=== PATIENT | male | born 1945 | race Caucasian/White ===

== ENCOUNTER 2016-11-03 06:06 | Inpatient (IN) ==
--- NOTE | 2016-10-25 15:24 | EKG Report ---
Stationary ECG Study [facility] Test Date: 10/25/2016 3:25:07 PM Pat Name: LILIANA ANDREA Department: Room: Gender: M Head Of Visual Merchandising: MIGUEL : 1945 Requested by: Mitul Capellan Order Number: [id number] Reading MD: SHIVANI ABURTO Intervals [place] Rate: 55 P: 45 PA: 219 QRS: -37 QRSD: 124 T: 165 QT: 533 QTc: 521 Interpretive Statements SINUS RHYTHM WITH PROLONGED PA INTERVAL MARKED LEFT AXIS DEVIATION LEFT VENTRICULAR HYPERTROPHY AND ST-T CHANGE Electronically Signed On 10-25-16 16:27:21 CDT by SHIVANI ABURTO [email or web address]
[~2016-11-03 06:06] MED LIST: SODIUM CHLORIDE 0.9% 100 ML IV ONE; ceFAZolin 1,000 MG VIAL ONE
[2016-11-03] MEDS ORDERED: LIDOCAINE 2% TOP JELLY 20 ML VIAL INTRAURETH ONE (06:25)
[2016-11-03] MEDS ORDERED: HEPARIN 5,000 UNIT/1 ML VIAL ONE (06:25)
[2016-11-03] MEDS ORDERED: THROMBIN TOPICAL (RECOMBINANT) 5,000 UNIT VIAL TOP ONE (06:26)
[2016-11-03] MEDS ORDERED: TISSUE ADHESIVE 1 EACH APPLICATOR TOP ONE (06:26)
[2016-11-03] MEDS ORDERED: VANCOMYCIN 500 MG VIAL ONE (06:26)
[2016-11-03] MEDS ORDERED: FAMOTIDINE 20 MG TABLET PO ONE (06:33)
[2016-11-03] MEDS ORDERED: ALBUTEROL 2.5 MG/3 ML NEB RESP TX ONE (06:33)
[2016-11-03] MEDS ORDERED: IPRATROPIUM 500 MCG/2.5 ML NEB RESP TX ONE (06:33)
[2016-11-03] MEDS ORDERED: LORazepam 1 MG TABLET PO ONE (06:33)
[2016-11-03] MEDS ORDERED: FAMOTIDINE 20 MG TABLET ONE (06:43)
[2016-11-03] MEDS ORDERED: LORazepam 1 MG TABLET ONE (06:43)
[2016-11-03] MEDS ORDERED: HEPARIN/NACL 0.9% 2 UNITS/ML 3,000 ML IV ONE (07:19)
[2016-11-03] MEDS ORDERED: HEPARIN 10,000 UNIT/10 ML VIAL ONE ×2 (07:30→11:30)
[2016-11-03] MEDS ORDERED: PROPOFOL 200 MG/20 ML VIAL IV ONE (07:30)
[2016-11-03] MEDS ORDERED: PHENYLEPHRINE 50 MG/5 ML VIAL ONE ×2 (07:30→11:31)
[2016-11-03] MEDS ORDERED: ROCURONIUM 100 MG/10 ML VIAL IV ONE ×2 (07:30→11:32)
[2016-11-03] MEDS ORDERED: ETOMIDATE 20 MG/10 ML VIAL IV ONE ×2 (07:30→11:31)
[2016-11-03] MEDS ORDERED: LIDOCAINE 2% 5 ML VIAL ONE (07:30)
[2016-11-03] MEDS ORDERED: ONDANSETRON 4 MG/2 ML VIAL IV PRN (10:37)
[2016-11-03] MEDS ORDERED: HYDROmorphone 2 MG/1 ML VIAL IV PRN (10:37)
[2016-11-03] MEDS ORDERED: oxyCODONE/ACETAMINOPHEN 5-325 MG TABLET PO PRN (10:37)
--- NOTE | 2016-11-03 10:37 | History and Physical Update ---
History and Physical Update - History and Physical H&P was reviewed, the patient examined and there: are no changes in the patients condition since last H&P was completed. - Physical Exam Mental Status: alert and oriented Heart: regular rate and rhythm Lung: clear to auscultation Abdomen: within normal limits Vitals: within normal limits
--- NOTE | 2016-11-03 10:49 | Post Interventional Procedure ---
Pre-op diagnosis: AAA, bilateral common iliac aneurysms Post-op diagnosis: same Procedure: EVAR AAA, left EDUARDO aneurysm Contrast: Omnipaque 350, 125 cc Flouroscopy: 26.1 min Radiologist: Anjel Anne Anesthesia: GETA Specimens: none sent Estimated blood loss: minimal (50 cc) Complications: none Condition: stable Grafts or Implants: See radiology dictation for device specifications Assessment and Plan - Time spent with patient Time spent with patient: Greater than 30 minutes (1) Abdominal aortic aneurysm Status: Acute Assessment and plan: A: s/p EVAR AAA, CIAA P: Tx to floor, advance diet, D/c palacios when ambulatory Current Visit: Yes
--- NOTE | 2016-11-03 11:21 | Anesthesia Post-Op ---
Anesthesia Post OP - Post Ansesthetic Evaluation Patient seen in post op: Yes Resp: within normal limits CV: within normal limits Mental: within normal limits Temp: within normal limits Pmmj-Pr-Keeranewi: within normal limits Nausea and Vomiting: within normal limits Pain: within normal limits
[2016-11-03] MEDS ORDERED: SEVOFLURANE 1 UNIT/15 MINUTE INH ONE (11:31)
[2016-11-03] MEDS ORDERED: GLYCOPYRROLATE 0.4 MG/2 ML VIAL ONE (11:31)
[2016-11-03] MEDS ORDERED: ePHEDrine 50 MG/ML AMP ONE (11:32)
[2016-11-03] MEDS ORDERED: LACTATED RINGERS 1,000 ML IV ONE (11:32)
[2016-11-03] MEDS ORDERED: SODIUM CHLORIDE 0.9% 250 ML IV ONE (11:32)
[2016-11-03] MEDS ORDERED: PROTAMINE SULFATE 50 MG/5 ML VIAL IV ONE (11:32)
[2016-11-03] MEDS ORDERED: SODIUM CHLORIDE 0.9% 2,000 ML IV ONE (11:32)
[2016-11-03 11:53] LABS: Hematocrit 39.1 VOL% (42.0-52.0); Hemoglobin 13.6 GM/DL (14.0-18.0)
[2016-11-03 12:11] LABS: Calcium 7.4 MG/DL (8.5-10.1); Osmolality,Calculated 292.6 MOS/KG (273-304); Potassium 3.6 MMOL/L (3.5-5.1)
--- NOTE | 2016-11-03 13:50 | Interventional Radiology Rpt ---
IR endo repair [id number], IR endo repair iliac ilio tube, IR stent graft place iliac, IR stent graft place iliac, US guide vascular access, US guide vascular access Indication: Abdominal aortic aneurysm. Bilateral common iliac artery aneurysms, worse on the left. ENDOVASCULAR REPAIR OF ABDOMINAL AORTIC ANEURYSM, REPAIR OF LEFT COMMON ILIAC ARTERY ANEURYSM Description: A formal timeout was performed. General endotracheal anesthesia was induced. Maximum sterile barrier technique was instituted. Heparin 5000 units was given. The right groin was evaluated with ultrasound and the common femoral artery shown to be slightly calcified but otherwise patent and compressible. Under sonographic guidance, a micropuncture needle was advanced into the right common femoral artery. A captured sonographic image documents the needle position. Needle was removed over wire. A Perclose device was then advanced and partially deployed at the 4:00 position relative to the arteriotomy site. This Perclose device was exchanged over wire for a second Perclose device which was partially deployed at the 8:00 position relative to the arteriotomy site. Both sutures were secured. The second Perclose was then removed over wire and a 12 [place] sheath positioned. The left groin was evaluated with ultrasound and the left common femoral artery shown to be slightly calcified but otherwise patent and compressible. Under sonographic guidance, a micropuncture needle was advanced into the left common femoral artery. A captured sonographic image documents needle position. Needle was removed over wire. A Perclose device was then advanced and partially deployed at the 8:00 position relative to the arteriotomy site. This Perclose device was exchanged over wire for another Perclose device which was partially deployed at the 4:00 position relative to the arteriotomy site. Both sutures were secured. The second Perclose was then removed over wire and a 16 [place] sheath positioned. A Glidewire was advanced from the left groin, and snared from the right groin. The Glidewire was then pulled through the right groin access sheath providing continuous up and over access across the bifurcation. From the left groin, a [place] Excluder 23 x 12 x 100 mm bifurcated iliac branch component was advanced. A pelvic angiogram was then performed through the right groin sheath confirming the position of the left hypogastric origin. After adjusting the bifurcated iliac component, it was partially deployed. From the right groin, the 12 [place] sheath was further advanced into the lumen of the newly deployed stent graft device. Lana catheter and Glidewire were then used to cannulate the left hypogastric artery. Position was confirmed with a arteriogram delineating the anterior and posterior divisions. A [place] Excluder 16 x 10 x 70 mm hypogastric operations boardman was then advanced and deployed linking the bifurcated iliac component to the left hypogastric artery. The remainder of the left external iliac outflow component was deployed in its entirety. Angioplasty was performed from both sides securing the left iliac structure in place. ACT of 187 seconds was measured. Heparin 5000 units was given. The 12 [place]ien right groin sheath was then withdrawn, and Cedillo wires advanced from both groins. The right sheath was then exchanged for a 18 [place] sheath. From the right groin, a [place] excluder 28.5 x 14.5 x 120 mm bifurcated aortic stent graft component was advanced into the suprarenal abdominal aorta. From the left groin, a flush catheter was advanced into the aorta. Abdominal aortogram was performed confirming the position of the lowest left renal artery. After adjusting the main body device slightly, the main body was deployed followed by deployment of the contralateral limb. The flush catheter was then withdrawn over a wire and exchanged for a Tegtmeyer catheter. The contralateral iliac limb was easily cannulated and a Tegtmeyer catheter advanced in the main body of the device. The Tegtmeyer catheter was exchanged for a flush catheter from the left groin which was then spun within the lumen of the stent graft confirm intraluminal positioning. Measurements from the main body flow divider to the left bifurcated iliac construct were then obtained and a [place] Excluder 16 x 23 x 120 mm contralateral iliac stent graft was advanced and deployed bridging the main body to the left iliac construct. Through the right groin sheath, a right groin arteriogram was performed confirming the origin of the right hypogastric artery. The flow divider of the main body position was confirmed and a [place] Excluder 16 x 27 x 140 mm carrero bottom iliac operations boardman was advanced from the right groin and deployed, distal portion of the stent graft in the slightly dilated right common iliac artery. Angioplasty was then performed throughout the entire construct from the inflow segment through both iliac portions. The right groin, a flush catheter was positioned in the suprarenal abdominal aorta. Aortogram was performed showing no evidence of endoleak and patency of all iliac outflow components. ACT of 223 seconds was measured. Protamine 25 mg was administered. At the right groin, the Perclose knots were advanced to the level of the sheath. The sheath was then removed and both Perclose not disclosed on the arteriotomy site. Sutures were cut and hemostasis was rapidly achieved with mild manual compression. Similarly, at the left groin, both Perclose knots were secured to the level of the sheath. After removing the sheath, they were then secured to the arteriotomy site achieving satisfactory hemostasis with light manual compression. Sterile dressings were applied. Patient was then awakened and transferred to recovery in stable condition. He tolerated the procedure well. Contrast: Omnipaque 350, 125 cc. Fluoroscopy: 26.1 minutes, 167 captured images. Medications: General endotracheal anesthesia. Heparin 10,000 units, protamine 25 mg. Impression: 1. Successful percutaneous endovascular repair of the left common iliac artery aneurysm maintaining outflow to both the left external and internal iliac arteries. 2. Successful percutaneous endovascular repair of abdominal aortic aneurysm linking the left iliac outflow to the bifurcated iliac construct described above. Right iliac outflow is to the right common iliac artery via carrero bottom stent graft. PROCEDURE INTERPRETED AT [facility] DEPARTMENT OF RADIOLOGY Final Report Signed by: Anjel Anne M.D.
[2016-11-03] MEDS: LACTATED RINGERS 1,000 ML IV SCH ×2 (14:45→15:15)
[2016-11-03] MEDS ORDERED: DILTIAZEM CD 240 MG CAPSULE PO SCH ×2 (15:00→21:00)
[2016-11-03] MEDS: LOSARTAN 50 MG TABLET PO SCH (15:48)
[2016-11-03] MEDS: MONTELUKAST 10 MG TABLET PO SCH (15:48)
[2016-11-03] MEDS: LEVOTHYROXINE 150 MCG TABLET PO SCH (15:49)
[2016-11-03] MEDS: DOCUSATE SODIUM 100 MG CAPSULE PO SCH (20:45)
[2016-11-03] MEDS ORDERED: BUDESONIDE/FORMOTEROL 160-4.5 INHALER 6 GM INH SCH (21:00)
[2016-11-03] MEDS ORDERED: ATORVASTATIN 40 MG TABLET PO SCH (21:00)
[2016-11-04] MEDS: LACTATED RINGERS 1,000 ML IV SCH (02:30)
[2016-11-04 06:30] LABS: Hematocrit 38.6 VOL% (42.0-52.0); Hemoglobin 13.2 GM/DL (14.0-18.0)
[2016-11-04 06:58] LABS: Calcium 7.9 MG/DL (8.5-10.1); Potassium 3.7 MMOL/L (3.5-5.1)
[2016-11-04] MEDS: LEVOTHYROXINE 150 MCG TABLET PO SCH (08:52)
[2016-11-04] MEDS: LOSARTAN 50 MG TABLET PO SCH (08:52)
[2016-11-04] MEDS: MONTELUKAST 10 MG TABLET PO SCH (08:53)
[2016-11-04] MEDS: DOCUSATE SODIUM 100 MG CAPSULE PO SCH (08:53)
[2016-11-04] MEDS ORDERED: CHLORTHALIDONE 25 MG TABLET PO SCH (09:00)
[2016-11-04] MEDS ORDERED: AMIODARONE 200 MG TABLET PO SCH (09:00)
[2016-11-04] MEDS ORDERED: clonazePAM 0.5 MG TABLET PO SCH (09:00)
[2016-11-04] MEDS ORDERED: MULTIVITAMIN (CENTRUM) TABLET PO SCH (09:00)
[2016-11-04] MEDS ORDERED: ASPIRIN EC 81 MG TABLET PO SCH (09:00)
--- NOTE | 2016-11-04 09:21 | XRay Report ---
Exam: KUB Exam date: 11/04/2016 906 AM Indication: Abdominal pain Comparison: No relevant comparison images Findings: There are dispersed throughout nondilated loops of large and small bowel with stool throughout the distal colon . No stones. Placement of bifurcated left iliac and aortoiliac stent graft, uncomplicated in appearance.No acute osseous abnormalities. Visualized lung bases are unremarkable. Impression: 1. Uncomplicated appearance of bifurcated iliac and aortoiliac stent graft 2. Mild ileus pattern PROCEDURE INTERPRETED AT [facility] DEPARTMENT OF RADIOLOGY Final Report Signed by: Jacky Grigsby
[2016-11-04 11:22] VITALS: BP 137/73
--- NOTE | 2016-11-04 11:45 | Progress Note ---
Assessment and Plan (1) Abdominal aortic aneurysm Status: Acute Assessment and plan: A: s/p EVAR AAA, CIAA P: Tx to floor, advance diet, D/c palacios when ambulatory 11:45 @ 11/04/16: Patient doing well postop day 1 from endovascular repair as described. Anticipate discharge today or early tomorrow. Follow-up CT 1 month. Current Visit: Yes Family Medicine PN Sub Interval history: Postop day 1 from complex endovascular repair of abdominal aortic aneurysm and left iliac artery aneurysm. Patient tolerating p.o. intake, and eager to go home. No issues overnight. Exam (Progress Note) - Constitutional Vitals: Period Temp Pulse Resp BP Sys/Kwong Pulse Ox Last 24 Hr 97.0 F-99.9 F 66-86 16-20 123-158/48-83 89-99 General appearance: over weight - Head Head exam: Present: normal inspection - Extremities Exam Extremities exam: Present: other (2+ bilateral posterior tibialis pulses of the feet, both feet warm and dry. Both groin dressings still present. No hematoma or significant ecchymosis on either side.) Results - Labs CBC & BMP: 11/04/16 05:33 11/04/16 05:33 Quality Measures - VTE Contraindication to Pharmacological VTE Prophylaxis: High Risk of Bleeding
--- NOTE | 2016-11-04 11:56 | Discharge Summary ---
Hospital Course - Hospital Course Hospital Course: Jacky moses was admitted 11/03/2016 with abdominal aortic and bilateral iliac aneurysms and underwent complex endovascular repair with a bifurcated graft at the left iliac bifurcation as well as a standard excluder graft in the aortoiliac systems that he is done well with that procedure and it is gone smoothly his blood counts are stable his electrolytes look good he has normal vital signs he is up and about tolerating a diet his incisions look good with no hematomas he has got good palpable posterior tibial pulses he is ready for discharge and I discussed with him and his discharge instructions on diet exercise wound care expected recovery potential complications. He will be discharged home back on his normal medications I will recommend Advil or Tylenol for pain going to add Plavix for approximately 6 months I will see him in the office in approximately 10-12 days I will see him sooner on a as needed basis Discharge Plan - Discharge Data Disposition: Disch To Home/Self Care Condition at Discharge: Stable Discharge Diet: advance to your usual diet Activity: resume usual activities as tolerated Hygiene: may shower Weight Bearing at Discharge: full weight bearing Contact your physician if you experience:: fever over 101, Redness or swelling - Discharge Medications New oxyCODONE/ACETAMINOPHEN 5-325 [Percocet 5-325] 1 tablet PO Q4H PRN tablet PRN Reason: Pain Moderate To Severe (4-10) Chlorthalidone [Hygroton] 25 mg PO DAILY tablet Clopidogrel [Plavix] 75 mg PO DAILY #30 tablet Continue Budesonide/Formoterol 160-4.5 [Symbicort 160-4.5] 1 puff INH BEDTIME Multivitamin (Centrum) [Centrum Tab] 1 tablet PO DAILY Docusate Sodium [Stool Softener] 100 mg PO BID Montelukast Tab [Singulair Tab] 10 mg PO DAILY Losartan Potassium 100 mg PO DAILY clonazePAM [Klonopin] 1 mg PO BEDTIME Atorvastatin [Lipitor] 40 mg PO BEDTIME dilTIAZem HCl [Diltiazem 24Hr Cd] 240 mg PO BEDTIME Aspirin [Ecotrin] 81 mg PO BEDTIME Amiodarone HCl 200 mg PO DAILY Levothyroxine Tab [Synthroid Tab] 150 mcg PO DAILY - Follow Up or Referral Follow Up: Jerzy Lopez MD [Physician] - 11/15/16 - Forms/Instructions Exam - Constitutional Vitals: Period Temp Pulse Resp BP Sys/Kwong Pulse Ox Last 24 Hr 97.0 F-99.9 F 66-86 16-20 123-158/48-83 89-99 Discharge Results Labs on day of discharge: Labs from last 24 hours 11/04/16 11/04/16 11/03/16 05:33 05:33 11:45 Hgb 13.2 L 13.6 L Hct 38.6 L 39.1 L Sodium 143 Potassium 3.7 Chloride 109 H Carbon Dioxide 26 Anion Gap 11.7 BUN 10 Creatinine 1.00 GFR Calculation 100 BUN/Creatinine Ratio 10.00 Glucose 98 Calculated Osmolality 283.0 Calcium 7.9 L 11/03/16 11:45 Hgb Hct Sodium 146 H Potassium 3.6 Chloride 114 H Carbon Dioxide 24 Anion Gap 11.6 BUN 16 Creatinine 1.10 GFR Calculation 90 BUN/Creatinine Ratio 14.00 Glucose 143 H Calculated Osmolality 292.6 Calcium 7.4 L DS: Provider Date of admission: 11/03/16 06:06 Primary care physician: Ezio Monteiro DO Attending physician on admission: Jerzy Lopez MD Consults: 11/03/16 10:37 Consult to Physician [CONS] Routine Comment: Consulting Provider: Anjel Anne Consulting Provider Notified: Yes Date Notified: 11/03/16 Consult Notification Comment: Dr. Anne has seen 11/03/16 14:40 Consult to Pastoral Services [CONS] Routine Comment: Pastoral Screen: Request Log Feeder Visit Pastoral Screen Source of Request: Patient Discharging clinician: Jerzy Lopez MD
== END 2016-11-04 14:30 | disposition home or self-care (01) | DRG 269 ==
LOC: N.SDSINP 06:06 → N.3E 13:46
PROVIDERS: ADMIT Surgery; ATTEND Surgery
PROC: IRERAAA (2016-11-03 07:05)

== ENCOUNTER 2020-05-18 08:44 | Inpatient (IN) ==
[2020-05-18] MEDS ORDERED: DEXTROSE 50% 25 GM/50 ML VIAL IV PRN (09:49)
[2020-05-18] MEDS ORDERED: GLUCAGON 1 MG VIAL IM PRN (09:49)
[2020-05-18] MEDS ORDERED: ENOXAPARIN 40 MG/0.4 ML SYRINGE SUBCUT SCH (10:00)
[2020-05-18 10:38] LABS: Basophils # 0.1 10*3/uL (0.0-0.2); Basophils % 0.6 % (0.0-0.8); Eosinophils # 0.2 10*3/uL (0.0-0.87); Eosinophils % 2.1 % (0.00-10.9); Hematocrit 45.9 VOL% (42.0-52.0); Hemoglobin 15.3 GM/DL (14.0-18.0); Immature Granulocytes Absolute 0.11 #; Lymphocytes # 2.4 10*3/uL (1.4-4.0); Mean Corpuscular HGB Conc 33.3 GM/DL (32-36); Mean Corpuscular Volume 94.6 FL (87-102); Mean Platelet Volume 10.5 FL (9.6-12.0); Neutrophils % 66.3 % (38.7-73.9); Platelet Count 270 T/CUMM (130-400); Red Blood Count 4.85 MC/CUMM (3.8-5.5); Red Cell Distribution Width 14.4 % (9.3-17.3); White Blood Count 11.4 T/CUMM (4-12)
[2020-05-18 11:00] LABS: Albumin 3.7 G/DL (3.4-5.0); Calcium 8.9 MG/DL (8.5-10.1); Potassium 3.3 MMOL/L (3.5-5.1); Total Protein 6.9 G/DL (6.4-8.2)
[2020-05-18] MEDS ORDERED: LORazepam 2 MG/1 ML VIAL IV PRN (12:25)
[2020-05-18] MEDS: POTASSIUM CHLORIDE INJ 20 MEQ in LACTATED RINGERS 1,000 ML IV SCH ×2 (15:04→23:16)
[2020-05-18] MEDS: clonazePAM 0.5 MG TABLET PO SCH (20:57)
[2020-05-18] MEDS: ASPIRIN EC 81 MG TABLET PO SCH (20:57)
[2020-05-19] MEDS: LEVOTHYROXINE 150 MCG TABLET PO SCH (05:49)
[2020-05-19 06:13] LABS: Basophils # 0.1 10*3/uL (0.0-0.2); Basophils % 0.6 % (0.0-0.8); Eosinophils # 0.3 10*3/uL (0.0-0.87); Eosinophils % 2.7 % (0.00-10.9); Hematocrit 42.5 VOL% (42.0-52.0); Hemoglobin 14.1 GM/DL (14.0-18.0); Immature Granulocytes Absolute 0.09 #; Lymphocytes # 2.1 10*3/uL (1.4-4.0); Lymphocytes % 22.3 % (21.2-54.2); Mean Corpuscular HGB Conc 33.2 GM/DL (32-36); Mean Corpuscular Volume 95.9 FL (87-102); Mean Platelet Volume 10.4 FL (9.6-12.0); Monocytes % 9.4 % (1.7-12.7); Platelet Count 270 T/CUMM (130-400); Red Blood Count 4.43 MC/CUMM (3.8-5.5); Red Cell Distribution Width 14.4 % (9.3-17.3); White Blood Count 9.2 T/CUMM (4-12)
[2020-05-19 06:24] LABS: INR 1.1; PT Patient Result 11.6 SECS (9.8-11.9)
[2020-05-19 06:39] LABS: Calcium 8.7 MG/DL (8.5-10.1); Osmolality,Calculated 278.5 MOS/KG (273-304); Potassium 3.7 MMOL/L (3.5-5.1); Thyroid Stimulating Hormone 3.45 uIU/ml (0.358-3.74)
[2020-05-19 07:01] LABS: Calcium 8.5 MG/DL (8.5-10.1); Osmolality,Calculated 282.3 MOS/KG (273-304); Potassium 3.8 MMOL/L (3.5-5.1)
[2020-05-19] MEDS: LACTATED RINGERS 1,000 ML IV SCH (07:01)
[2020-05-19] MEDS ORDERED: LIDOCAINE 2% 5 ML VIAL ONE (07:10)
[2020-05-19] MEDS ORDERED: propofoL 200 MG/20 ML VIAL IV ONE ×2 (07:10→07:54)
[2020-05-19] MEDS ORDERED: ePHEDrine 50 MG/ML VIAL ONE (07:22)
[2020-05-19] MEDS ORDERED: PHENYLEPHRINE 1 MG/10 ML SYRINGE IV ONE (07:50)
[2020-05-19] MEDS: POTASSIUM CHLORIDE INJ 20 MEQ in LACTATED RINGERS 1,000 ML IV SCH ×2 (09:05→15:57)
[2020-05-19] MEDS: CHLORTHALIDONE 25 MG TABLET PO SCH (09:05)
[2020-05-19] MEDS: DILTIAZEM CD 120 MG CAPSULE PO SCH (09:06)
[2020-05-19] MEDS: LOSARTAN 50 MG TABLET PO SCH (09:06)
[2020-05-19] MEDS: AMIODARONE 200 MG TABLET PO SCH (09:06)
[2020-05-19] MEDS: BISACODYL 5 MG TABLET PO SCH ×2 (09:13→15:56)
[2020-05-19] MEDS ORDERED: ACETAMINOPHEN 325 MG TABLET PO PRN (17:51)
[2020-05-19] MEDS ORDERED: POLYETHYLENE GLYCOL 3350/ELECTROLYTES 4,000 ML BOTTLE PO ONE (18:00)
[2020-05-19] MEDS: clonazePAM 0.5 MG TABLET PO SCH (20:58)
[2020-05-19] MEDS: ASPIRIN EC 81 MG TABLET PO SCH (20:58)
[2020-05-19] MEDS ORDERED: MAGNESIUM CITRATE 300 ML BOTTLE PO ONE (21:00)
[2020-05-20] MEDS: POTASSIUM CHLORIDE INJ 20 MEQ in LACTATED RINGERS 1,000 ML IV SCH ×3 (00:08→15:46)
[2020-05-20] MEDS: BISACODYL 5 MG TABLET PO SCH (00:09)
[2020-05-20] MEDS: LEVOTHYROXINE 150 MCG TABLET PO SCH (05:39)
[2020-05-20 06:00] LABS: Basophils # 0.1 10*3/uL (0.0-0.2); Basophils % 0.7 % (0.0-0.8); Eosinophils # 0.3 10*3/uL (0.0-0.87); Eosinophils % 4.3 % (0.00-10.9); Hematocrit 38.7 VOL% (42.0-52.0); Hemoglobin 13.3 GM/DL (14.0-18.0); Immature Granulocytes % 1.3 %; Immature Granulocytes Absolute 0.09 #; Lymphocytes # 2.1 10*3/uL (1.4-4.0); Lymphocytes % 30.6 % (21.2-54.2); Mean Corpuscular HGB Conc 34.4 GM/DL (32-36); Mean Corpuscular Volume 92.1 FL (87-102); Mean Platelet Volume 10.6 FL (9.6-12.0); Monocytes % 10.1 % (1.7-12.7); Platelet Count 219 T/CUMM (130-400); Red Cell Distribution Width 14.1 % (9.3-17.3); White Blood Count 6.8 T/CUMM (4-12)
[2020-05-20 06:15] LABS: Osmolality,Calculated 286.8 MOS/KG (273-304); Potassium 3.1 MMOL/L (3.5-5.1)
[2020-05-20] MEDS: LACTATED RINGERS 1,000 ML IV SCH (06:40)
[2020-05-20] MEDS ORDERED: propofoL 200 MG/20 ML VIAL IV ONE ×3 (07:23→08:03)
[2020-05-20] MEDS ORDERED: LIDOCAINE 2% 5 ML VIAL ONE (07:23)
[2020-05-20] MEDS ORDERED: PHENYLEPHRINE 1 MG/10 ML SYRINGE IV ONE (07:23)
[2020-05-20] MEDS: AMIODARONE 200 MG TABLET PO SCH (11:02)
[2020-05-20] MEDS: LOSARTAN 50 MG TABLET PO SCH (11:02)
[2020-05-20] MEDS: DILTIAZEM CD 120 MG CAPSULE PO SCH (11:02)
[2020-05-20] MEDS: CHLORTHALIDONE 25 MG TABLET PO SCH (11:02)
[2020-05-20 15:31] VITALS: BP 144/69
[2020-05-20] MEDS ORDERED: POTASSIUM CHLORIDE 20 MEQ TABLET PO ONE (15:40)
== END 2020-05-20 17:50 | disposition home or self-care (01) | DRG 390 ==
LOC: N.EDINP 08:44 → N.ED 08:44 → N.3E 12:58
PROVIDERS: ADMIT Hospitalist; ATTEND Hospitalist

== ENCOUNTER 2021-04-12 05:57 | Inpatient (IN) ==
[2021-04-08 12:14] LABS: Basophils % 0.6 % (0.0-0.8); Eosinophils # 0.3 10*3/uL (0.0-0.87); Eosinophils % 3.9 % (0.00-10.9); Hemoglobin 14.6 GM/DL (14.0-18.0); Immature Granulocytes % 0.6 %; Immature Granulocytes Absolute 0.04 #; Lymphocytes # 1.8 10*3/uL (1.4-4.0); Lymphocytes % 25.1 % (21.2-54.2); Mean Corpuscular HGB Conc 33.2 GM/DL (32-36); Mean Platelet Volume 11.1 FL (9.6-12.0); Monocytes % 9.4 % (1.7-12.7); Neutrophils % 60.4 % (38.7-73.9); Platelet Count 256 T/CUMM (130-400); Red Blood Count 4.73 MC/CUMM (3.8-5.5); Red Cell Distribution Width 13.2 % (9.3-17.3); White Blood Count 7.2 T/CUMM (4-12)
[2021-04-08 12:28] LABS: Calcium 9.4 MG/DL (8.5-10.1); Osmolality,Calculated 286.4 MOS/KG (273-304); Potassium 4.5 MMOL/L (3.5-5.1)
[~2021-04-12 05:57] MED LIST changes: +ERTAPENEM 1,000 MG in SODIUM CHLORIDE 0.9% 100 ML IV ONE; -SODIUM CHLORIDE 0.9% 100 ML IV ONE; -ceFAZolin 1,000 MG VIAL ONE
[2021-04-12] MEDS ORDERED: ALVIMOPAN 12 MG CAPSULE PO ONE (06:00)
[2021-04-12] MEDS: LACTATED RINGERS 1,000 ML IV SCH ×4 (06:30→19:47)
[2021-04-12] MEDS ORDERED: ALBUTEROL/IPRATROPIUM 3 ML NEB RESP TX STA (06:41)
[2021-04-12] MEDS ORDERED: ACETAMINOPHEN 500 MG TABLET PO STA (06:41)
[2021-04-12] MEDS ORDERED: FAMOTIDINE 20 MG TABLET PO STA (06:42)
[2021-04-12] MEDS ORDERED: DEXAMETHASONE 4 MG/1 ML VIAL ONE ×2 (06:44→08:23)
[2021-04-12] MEDS ORDERED: BUPIVACAINE MPF 0.5% 30 ML VIAL ONE (06:44)
[2021-04-12] MEDS ORDERED: SUFentanil 50 MCG/ML AMP ONE (06:53)
[2021-04-12] MEDS ORDERED: ETOMIDATE 40 MG/20 ML VIAL IV ONE (06:53)
[2021-04-12] MEDS ORDERED: propofoL 200 MG/20 ML VIAL IV ONE (06:53)
[2021-04-12] MEDS ORDERED: SEVOFLURANE 1 UNIT/15 MINUTE INH ONE ×2 (06:53→10:12)
[2021-04-12] MEDS ORDERED: KETAMINE 500 MG/10 ML VIAL ONE (06:53)
[2021-04-12] MEDS ORDERED: SUCCINYLCHOLINE 200 MG/10 ML VIAL ONE (06:53)
[2021-04-12] MEDS ORDERED: LIDOCAINE 2% 5 ML VIAL ONE (06:53)
[2021-04-12] MEDS ORDERED: BUPIVACAINE MPF 0.25% 30 ML VIAL ONE (07:05)
[2021-04-12] MEDS ORDERED: TISSUE ADHESIVE 1 EACH APPLICATOR TOP ONE (07:05)
[2021-04-12] MEDS ORDERED: LIDOCAINE 1%/EPI INJ 20 ML VIAL ONE (07:05)
[2021-04-12] MEDS ORDERED: GLYCOPYRROLATE 0.4 MG/2 ML VIAL ONE (08:21)
[2021-04-12] MEDS ORDERED: ePHEDrine 50 MG/ML VIAL ONE (08:22)
[2021-04-12] MEDS ORDERED: ONDANSETRON 4 MG/2 ML VIAL ONE (08:23)
[2021-04-12] MEDS ORDERED: PHENYLEPHRINE 1 MG/10 ML SYRINGE IV ONE (08:42)
[2021-04-12] MEDS ORDERED: LACTATED RINGERS 1,000 ML IV ONE (08:43)
[2021-04-12] MEDS ORDERED: INDOCYANINE GREEN 25 MG VIAL IV ONE (09:19)
[2021-04-12] MEDS ORDERED: ROCURONIUM 50 MG/5 ML VIAL IV ONE (09:34)
[2021-04-12] MEDS ORDERED: SUGAMMADEX 200 MG/2 ML VIAL IV ONE (09:54)
[2021-04-12] MEDS ORDERED: ACETAMINOPHEN 325 MG TABLET PO PRN (10:25)
[2021-04-12] MEDS ORDERED: ONDANSETRON 4 MG/2 ML VIAL IV PRN ×2 (10:25→10:49)
[2021-04-12] MEDS ORDERED: HYDROmorphone 2 MG/1 ML VIAL IV PRN ×2 (10:25)
[2021-04-12] MEDS ORDERED: ALBUTEROL/IPRATROPIUM 3 ML NEB RESP TX PRN (10:25)
[2021-04-12] MEDS: HYDROmorphone 2 MG/1 ML VIAL IV PRN ×4 (11:00→11:45)
[2021-04-12] MEDS: KETOROLAC 15 MG/1 ML VIAL IV SCH ×2 (13:12→19:34)
[2021-04-12] MEDS: ASPIRIN EC 81 MG TABLET PO SCH (20:49)
[2021-04-12] MEDS: ALVIMOPAN 12 MG CAPSULE PO SCH (20:49)
[2021-04-12] MEDS: traZODone 50 MG TABLET PO SCH (20:49)
[2021-04-12] MEDS: DILTIAZEM CD 120 MG CAPSULE PO SCH (20:49)
[2021-04-12] MEDS: TERAZOSIN 1 MG CAPSULE PO SCH (20:50)
[2021-04-12] MEDS: BUDESONIDE/FORMOTEROL 160-4.5 INHALER 6 GM INH SCH (20:51)
[2021-04-13] MEDS: KETOROLAC 15 MG/1 ML VIAL IV SCH ×4 (01:06→21:23)
[2021-04-13] MEDS: LACTATED RINGERS 1,000 ML IV SCH ×2 (03:20→22:19)
[2021-04-13 05:37] LABS: Basophils % 0.2 % (0.0-0.8); Eosinophils % 0.1 % (0.00-10.9); Hematocrit 36.9 VOL% (42.0-52.0); Hemoglobin 12.4 GM/DL (14.0-18.0); Immature Granulocytes % 0.6 %; Immature Granulocytes Absolute 0.06 #; Lymphocytes # 1.2 10*3/uL (1.4-4.0); Lymphocytes % 12.4 % (21.2-54.2); Mean Corpuscular HGB Conc 33.6 GM/DL (32-36); Mean Corpuscular Volume 93.4 FL (87-102); Mean Platelet Volume 11.3 FL (9.6-12.0); Monocytes % 9.3 % (1.7-12.7); Neutrophils % 77.4 % (38.7-73.9); Platelet Count 197 T/CUMM (130-400); Red Blood Count 3.95 MC/CUMM (3.8-5.5); Red Cell Distribution Width 12.6 % (9.3-17.3); White Blood Count 9.6 T/CUMM (4-12)
[2021-04-13 05:57] LABS: Calcium 7.9 MG/DL (8.5-10.1); Osmolality,Calculated 284.3 MOS/KG (273-304); Potassium 3.3 MMOL/L (3.5-5.1)
[2021-04-13] MEDS: LEVOTHYROXINE 150 MCG TABLET PO SCH (06:33)
[2021-04-13] MEDS: PANTOPRAZOLE 40 MG VIAL IV SCH (08:45)
[2021-04-13] MEDS: AMIODARONE 200 MG TABLET PO SCH (08:46)
[2021-04-13] MEDS: VALSARTAN 160 MG TABLET PO SCH (08:47)
[2021-04-13] MEDS: CHLORTHALIDONE 25 MG TABLET PO SCH (08:48)
[2021-04-13] MEDS: MONTELUKAST 10 MG TABLET PO SCH (08:48)
[2021-04-13] MEDS: ALVIMOPAN 12 MG CAPSULE PO SCH ×2 (08:48→21:22)
[2021-04-13] MEDS: ENOXAPARIN 40 MG/0.4 ML SYRINGE SUBCUT SCH (09:30)
[2021-04-13] MEDS: BUDESONIDE/FORMOTEROL 160-4.5 INHALER 6 GM INH SCH ×2 (09:30→21:24)
[2021-04-13] MEDS: POTASSIUM CHLORIDE INJ 40 MEQ in LACTATED RINGERS 1,000 ML IV SCH ×2 (13:57→21:21)
[2021-04-13] MEDS: ASPIRIN EC 81 MG TABLET PO SCH (21:22)
[2021-04-13] MEDS: traZODone 50 MG TABLET PO SCH (21:22)
[2021-04-13] MEDS: TERAZOSIN 1 MG CAPSULE PO SCH (21:22)
[2021-04-13] MEDS: DILTIAZEM CD 120 MG CAPSULE PO SCH (21:23)
[2021-04-14] MEDS: KETOROLAC 15 MG/1 ML VIAL IV SCH ×3 (01:39→12:54)
[2021-04-14] MEDS: POTASSIUM CHLORIDE INJ 40 MEQ in LACTATED RINGERS 1,000 ML IV SCH ×2 (04:12→14:05)
[2021-04-14 05:54] LABS: Basophils % 0.4 % (0.0-0.8); Eosinophils # 0.2 10*3/uL (0.0-0.87); Hematocrit 36.1 VOL% (42.0-52.0); Hemoglobin 12.1 GM/DL (14.0-18.0); Immature Granulocytes % 0.4 %; Immature Granulocytes Absolute 0.03 #; Lymphocytes # 1.9 10*3/uL (1.4-4.0); Mean Corpuscular HGB Conc 33.5 GM/DL (32-36); Mean Corpuscular Volume 93.5 FL (87-102); Monocytes % 9.3 % (1.7-12.7); Neutrophils % 62.9 % (38.7-73.9); Platelet Count 170 T/CUMM (130-400); Red Blood Count 3.86 MC/CUMM (3.8-5.5); Red Cell Distribution Width 12.9 % (9.3-17.3); White Blood Count 7.6 T/CUMM (4-12)
[2021-04-14 06:05] LABS: Calcium 8.1 MG/DL (8.5-10.1); Osmolality,Calculated 285.1 MOS/KG (273-304); Potassium 3.8 MMOL/L (3.5-5.1)
[2021-04-14] MEDS: LEVOTHYROXINE 150 MCG TABLET PO SCH (06:09)
[2021-04-14] MEDS: AMIODARONE 200 MG TABLET PO SCH (09:39)
[2021-04-14] MEDS: VALSARTAN 160 MG TABLET PO SCH (09:43)
[2021-04-14] MEDS: ALVIMOPAN 12 MG CAPSULE PO SCH (09:44)
[2021-04-14] MEDS: CHLORTHALIDONE 25 MG TABLET PO SCH (09:45)
[2021-04-14] MEDS: MONTELUKAST 10 MG TABLET PO SCH (09:46)
[2021-04-14] MEDS: BUDESONIDE/FORMOTEROL 160-4.5 INHALER 6 GM INH SCH (09:47)
[2021-04-14] MEDS: ENOXAPARIN 40 MG/0.4 ML SYRINGE SUBCUT SCH (09:49)
[2021-04-14] MEDS: PANTOPRAZOLE 40 MG VIAL IV SCH (10:13)
[2021-04-14 15:59] VITALS: BP 158/80
== END 2021-04-14 17:26 | disposition home or self-care (01) | DRG 330 ==
LOC: N.OR 05:57 → N.SDSINP 05:58 → N.3E 11:53
PROVIDERS: ADMIT Surgery; ATTEND Surgery

== ENCOUNTER 2022-02-21 09:13 | Observation (INO) ==
[2022-02-21 09:59] LABS: Basophils % 0.3 % (0.0-0.8); Eosinophils # 0.1 10*3/uL (0.0-0.87); Eosinophils % 0.7 % (0.00-10.9); Hematocrit 36.6 VOL% (42.0-52.0); Hemoglobin 12.3 GM/DL (14.0-18.0); Immature Granulocytes % 1.8 %; Lymphocytes # 2.1 10*3/uL (1.4-4.0); Mean Corpuscular HGB Conc 33.6 GM/DL (32-36); Mean Corpuscular Volume 93.1 FL (87-102); Mean Platelet Volume 10.2 FL (9.6-12.0); Monocytes # 0.8 10*3/uL (0.11-0.8); Monocytes % 6.7 % (1.7-12.7); Neutrophils % 71.5 % (38.7-73.9); Platelet Count 318 T/CUMM (130-400); Red Blood Count 3.93 MC/CUMM (3.8-5.5); Red Cell Distribution Width 13.9 % (9.3-17.3); White Blood Count 11.1 T/CUMM (4-12)
[2022-02-21 10:24] LABS: Albumin 3.1 G/DL (3.4-5.0); Bilirubin,Total 0.5 MG/DL (0.20-1.00); Calcium 8.5 MG/DL (8.5-10.1); Total Protein 6.1 G/DL (6.4-8.2)
[2022-02-21] MEDS ORDERED: FUROSEMIDE 40 MG/4 ML VIAL IV STA (10:46)
[2022-02-21] MEDS ORDERED: ACETAMINOPHEN 325 MG TABLET PO PRN (11:44)
[2022-02-21] MEDS ORDERED: hydrALAZINE 20 MG/1 ML VIAL IV PRN (11:44)
[2022-02-21] MEDS ORDERED: ONDANSETRON 4 MG/2 ML VIAL IV PRN (11:44)
[2022-02-21] MEDS ORDERED: MELATONIN 3 MG TABLET PO PRN (11:48)
[2022-02-21] MEDS: CETIRIZINE 10 MG TABLET PO SCH (12:44)
[2022-02-21] MEDS: FAMOTIDINE 20 MG TABLET PO SCH ×2 (12:44→20:53)
[2022-02-21] MEDS: ZINC GLUCONATE 50 MG TABLET PO SCH (12:44)
[2022-02-21] MEDS: CHOLECALCIFEROL 1,000 UNIT TABLET PO SCH (12:44)
[2022-02-21] MEDS: DEXAMETHASONE 4 MG/1 ML VIAL IV SCH (12:44)
[2022-02-21] MEDS: ASCORBIC ACID 500 MG TABLET PO SCH ×2 (12:44→20:52)
[2022-02-21] MEDS: LEVALBUTEROL 1.25 MG/3 ML NEB RESP TX SCH ×2 (13:10→19:40)
[2022-02-21 13:50] LABS: Hepatitis B Core IgM Quant < 0.05 Index; Hepatitis B Surface Ag Quant < 0.10 Index; Hepatitis B Surface Ag Result Non-Reactive (NonReactive); Hepatitis C Virus Ab Quant < 0.02 Index; Hepatitis C Virus Ab Result Non-Reactive (NonReactive)
[2022-02-21] MEDS: ASPIRIN EC 81 MG TABLET PO SCH (20:52)
[2022-02-21] MEDS: ATORVASTATIN 40 MG TABLET PO SCH (20:52)
[2022-02-21] MEDS: traZODone 50 MG TABLET PO SCH (20:53)
[2022-02-21] MEDS: BUDESONIDE/FORMOTEROL 160-4.5 INHALER 6 GM INH SCH (20:53)
[2022-02-21] MEDS: APIXABAN 5 MG TABLET PO SCH (20:53)
[2022-02-22] MEDS: LEVALBUTEROL 1.25 MG/3 ML NEB RESP TX SCH ×4 (00:23→21:43)
[2022-02-22 06:04] LABS: Basophils % 0.2 % (0.0-0.8); Eosinophils # 0.1 10*3/uL (0.0-0.87); Eosinophils % 0.9 % (0.00-10.9); Hematocrit 35.1 VOL% (42.0-52.0); Hemoglobin 11.3 GM/DL (14.0-18.0); Immature Granulocytes % 2.1 %; Immature Granulocytes Absolute 0.26 #; Lymphocytes # 2.7 10*3/uL (1.4-4.0); Lymphocytes % 21.7 % (21.2-54.2); Mean Corpuscular HGB Conc 32.2 GM/DL (32-36); Mean Corpuscular Volume 94.6 FL (87-102); Mean Platelet Volume 10.4 FL (9.6-12.0); Monocytes # 0.9 10*3/uL (0.11-0.8); Monocytes % 7.3 % (1.7-12.7); Neutrophils % 67.8 % (38.7-73.9); Platelet Count 329 T/CUMM (130-400); Red Blood Count 3.71 MC/CUMM (3.8-5.5); White Blood Count 12.3 T/CUMM (4-12)
[2022-02-22] MEDS: LEVOTHYROXINE 125 MCG TABLET PO SCH (06:05)
[2022-02-22 06:29] LABS: Bilirubin,Total 0.6 MG/DL (0.20-1.00); Calcium 8.3 MG/DL (8.5-10.1); Osmolality,Calculated 285.4 MOS/KG (273-304); Potassium 3.6 MMOL/L (3.5-5.1); Total Protein 6.3 G/DL (6.4-8.2)
[2022-02-22] MEDS ORDERED: PANTOPRAZOLE 40 MG TABLET PO SCH (09:00)
[2022-02-22] MEDS ORDERED: AMIODARONE 200 MG TABLET PO SCH (09:00)
[2022-02-22] MEDS: ASCORBIC ACID 500 MG TABLET PO SCH ×2 (09:28→22:09)
[2022-02-22] MEDS: FAMOTIDINE 20 MG TABLET PO SCH ×2 (09:28→22:09)
[2022-02-22] MEDS: BUDESONIDE/FORMOTEROL 160-4.5 INHALER 6 GM INH SCH ×2 (09:29→22:10)
[2022-02-22] MEDS: APIXABAN 5 MG TABLET PO SCH ×2 (09:29→22:09)
[2022-02-22] MEDS: CETIRIZINE 10 MG TABLET PO SCH (09:29)
[2022-02-22] MEDS: CHOLECALCIFEROL 1,000 UNIT TABLET PO SCH (09:29)
[2022-02-22] MEDS: POLYETHYLENE GLYCOL POWDER 17 GM PACK PO SCH (09:31)
[2022-02-22] MEDS: DEXAMETHASONE 4 MG/1 ML VIAL IV SCH (11:39)
[2022-02-22] MEDS: FUROSEMIDE 40 MG/4 ML VIAL IV SCH ×2 (11:40→16:01)
[2022-02-22] MEDS: ZINC GLUCONATE 50 MG TABLET PO SCH (12:21)
[2022-02-22] MEDS: DAPAGLIFLOZIN 10 MG TABLET PO SCH (15:58)
[2022-02-22] MEDS: ASPIRIN EC 81 MG TABLET PO SCH (22:09)
[2022-02-22] MEDS: ATORVASTATIN 40 MG TABLET PO SCH (22:10)
[2022-02-22] MEDS: traZODone 50 MG TABLET PO SCH (22:10)
[2022-02-23] MEDS: LEVALBUTEROL 1.25 MG/3 ML NEB RESP TX SCH ×2 (01:22→07:22)
[2022-02-23] MEDS: LEVOTHYROXINE 125 MCG TABLET PO SCH (05:44)
[2022-02-23 05:51] LABS: Basophils % 0.3 % (0.0-0.8); Eosinophils % 0.2 % (0.00-10.9); Hematocrit 35.6 VOL% (42.0-52.0); Hemoglobin 11.9 GM/DL (14.0-18.0); Immature Granulocytes % 2.2 %; Immature Granulocytes Absolute 0.25 #; Lymphocytes # 1.6 10*3/uL (1.4-4.0); Lymphocytes % 13.8 % (21.2-54.2); Mean Corpuscular HGB Conc 33.4 GM/DL (32-36); Mean Platelet Volume 10.4 FL (9.6-12.0); Monocytes # 0.8 10*3/uL (0.11-0.8); Monocytes % 6.7 % (1.7-12.7); Neutrophils % 76.8 % (38.7-73.9); Platelet Count 320 T/CUMM (130-400); Red Blood Count 3.83 MC/CUMM (3.8-5.5); Red Cell Distribution Width 13.6 % (9.3-17.3); White Blood Count 11.5 T/CUMM (4-12)
[2022-02-23 06:12] LABS: Bilirubin,Total 0.5 MG/DL (0.20-1.00); Osmolality,Calculated 292.8 MOS/KG (273-304); Potassium 3.9 MMOL/L (3.5-5.1); Total Protein 6.4 G/DL (6.4-8.2)
[2022-02-23] MEDS: ZINC GLUCONATE 50 MG TABLET PO SCH (08:39)
[2022-02-23] MEDS: POLYETHYLENE GLYCOL POWDER 17 GM PACK PO SCH (08:39)
[2022-02-23] MEDS: FAMOTIDINE 20 MG TABLET PO SCH (08:39)
[2022-02-23] MEDS: ASCORBIC ACID 500 MG TABLET PO SCH (08:40)
[2022-02-23] MEDS: DAPAGLIFLOZIN 10 MG TABLET PO SCH (08:40)
[2022-02-23] MEDS: CETIRIZINE 10 MG TABLET PO SCH (08:40)
[2022-02-23] MEDS: APIXABAN 5 MG TABLET PO SCH (08:40)
[2022-02-23] MEDS: CHOLECALCIFEROL 1,000 UNIT TABLET PO SCH (08:40)
[2022-02-23] MEDS: FUROSEMIDE 40 MG/4 ML VIAL IV SCH (08:41)
[2022-02-23] MEDS: BUDESONIDE/FORMOTEROL 160-4.5 INHALER 6 GM INH SCH (08:41)
[2022-02-23] MEDS ORDERED: AMIODARONE 200 MG TABLET PO SCH (09:00)
[2022-02-23 09:23] VITALS: BP 151/81
[2022-02-23] MEDS: DEXAMETHASONE 4 MG/1 ML VIAL IV SCH (10:30)
== END 2022-02-23 11:19 | disposition home or self-care (01) ==
LOC: N.ED 09:13 → N.EDINP 09:13 → N.TELEN 15:20
PROVIDERS: ADMIT Internal Medicine; ATTEND Internal Medicine

== ENCOUNTER 2022-02-25 13:16 | Inpatient (IN) ==
[2022-02-25 15:19] LABS: Basophils % 0.3 % (0.0-0.8); Eosinophils # 0.2 10*3/uL (0.0-0.87); Eosinophils % 1.8 % (0.00-10.9); Hematocrit 40.9 VOL% (42.0-52.0); Hemoglobin 13.4 GM/DL (14.0-18.0); Immature Granulocytes % 4.8 %; Immature Granulocytes Absolute 0.59 #; Lymphocytes # 1.5 10*3/uL (1.4-4.0); Lymphocytes % 12.3 % (21.2-54.2); Mean Corpuscular HGB Conc 32.8 GM/DL (32-36); Mean Corpuscular Volume 94.2 FL (87-102); Mean Platelet Volume 10.6 FL (9.6-12.0); Monocytes # 1.2 10*3/uL (0.11-0.8); Monocytes % 9.4 % (1.7-12.7); Neutrophils % 71.4 % (38.7-73.9); Platelet Count 382 T/CUMM (130-400); Red Blood Count 4.34 MC/CUMM (3.8-5.5); Red Cell Distribution Width 13.9 % (9.3-17.3); White Blood Count 12.4 T/CUMM (4-12)
[2022-02-25 15:43] LABS: Eosinophils 5 % (0-10); Lymphocytes 11 % (20-55); Total Cells Counted 100
[2022-02-25 15:45] LABS: Platelet Estimate Normal
[2022-02-25 15:49] LABS: Albumin 3.6 G/DL (3.4-5.0); Bilirubin,Total 0.8 MG/DL (0.20-1.00); Calcium 9.1 MG/DL (8.5-10.1); Potassium 3.8 MMOL/L (3.5-5.1); Total Protein 6.7 G/DL (6.4-8.2)
[2022-02-25] MEDS ORDERED: hydrALAZINE 20 MG/1 ML VIAL IV STA (16:36)
[2022-02-25] MEDS ORDERED: FUROSEMIDE 40 MG/4 ML VIAL IV STA (16:37)
[2022-02-25] MEDS ORDERED: DEXTROSE 10% 250 ML BAG IV PRN (18:08)
[2022-02-25] MEDS ORDERED: GLUCAGON 1 MG VIAL IM PRN (18:08)
[2022-02-25] MEDS ORDERED: ACETAMINOPHEN 325 MG TABLET PO PRN (18:08)
[2022-02-25] MEDS ORDERED: ONDANSETRON 4 MG/2 ML VIAL IV PRN (18:08)
[2022-02-25] MEDS ORDERED: LEVOFLOXACIN INJ 750 MG/150 ML PREMIX IV SCH (20:00)
[2022-02-25] MEDS: guaiFENesin/DM ER 600-30 MG TABLET PO SCH (21:41)
[2022-02-25] MEDS: INSULIN REGULAR 100 UNIT/ML SUBCUT SCH (21:42)
[2022-02-25] MEDS: traZODone 50 MG TABLET PO SCH (22:10)
[2022-02-25] MEDS: LEVALBUTEROL 1.25 MG/3 ML NEB RESP TX SCH (23:58)
[2022-02-26 07:35] LABS: Basophils # 0.1 10*3/uL (0.0-0.2); Basophils % 0.4 % (0.0-0.8); Eosinophils # 0.2 10*3/uL (0.0-0.87); Eosinophils % 2.1 % (0.00-10.9); Hematocrit 39.1 VOL% (42.0-52.0); Immature Granulocytes Absolute 0.45 #; Lymphocytes # 1.4 10*3/uL (1.4-4.0); Lymphocytes % 12.6 % (21.2-54.2); Mean Corpuscular HGB Conc 33.2 GM/DL (32-36); Mean Corpuscular Volume 92.4 FL (87-102); Mean Platelet Volume 10.5 FL (9.6-12.0); Monocytes # 1.4 10*3/uL (0.11-0.8); Monocytes % 12.5 % (1.7-12.7); Neutrophils % 68.4 % (38.7-73.9); Platelet Count 361 T/CUMM (130-400); Red Blood Count 4.23 MC/CUMM (3.8-5.5); White Blood Count 11.4 T/CUMM (4-12)
[2022-02-26] MEDS: INSULIN REGULAR 100 UNIT/ML SUBCUT SCH (07:52)
[2022-02-26 07:58] LABS: Albumin 3.2 G/DL (3.4-5.0); Bilirubin,Total 1.2 MG/DL (0.20-1.00); Calcium 8.3 MG/DL (8.5-10.1); Osmolality,Calculated 286.1 MOS/KG (273-304); Potassium 3.5 MMOL/L (3.5-5.1); Total Protein 6.5 G/DL (6.4-8.2)
[2022-02-26] MEDS: PANTOPRAZOLE 40 MG TABLET PO SCH (08:32)
[2022-02-26] MEDS: guaiFENesin/DM ER 600-30 MG TABLET PO SCH ×2 (08:32→21:06)
[2022-02-26] MEDS: FUROSEMIDE 40 MG/4 ML VIAL IV SCH (08:32)
[2022-02-26] MEDS ORDERED: POTASSIUM CHLORIDE 10 MEQ TABLET PO PRN (09:45)
[2022-02-26] MEDS ORDERED: traMADol 50 MG TABLET PO PRN (09:45)
[2022-02-26] MEDS ORDERED: AZITHROMYCIN 250 MG TABLET PO ONE (10:02)
[2022-02-26] MEDS: APIXABAN 5 MG TABLET PO SCH ×2 (10:58→21:06)
[2022-02-26] MEDS: DAPAGLIFLOZIN 10 MG TABLET PO SCH (10:59)
[2022-02-26] MEDS: cefTRIAXone 1,000 MG in SODIUM CHLORIDE 0.9% 100 ML IV SCH (10:59)
[2022-02-26] MEDS: POLYETHYLENE GLYCOL POWDER 17 GM PACK PO SCH (10:59)
[2022-02-26] MEDS: AMIODARONE 200 MG TABLET PO SCH (10:59)
[2022-02-26] MEDS: BUDESONIDE/FORMOTEROL 160-4.5 INHALER 6 GM INH SCH ×2 (11:00→21:08)
[2022-02-26] MEDS: LEVALBUTEROL 1.25 MG/3 ML NEB RESP TX SCH ×2 (11:15→19:28)
[2022-02-26] MEDS: ASPIRIN EC 81 MG TABLET PO SCH (21:05)
[2022-02-26] MEDS: traZODone 50 MG TABLET PO SCH (21:06)
[2022-02-26] MEDS: ATORVASTATIN 40 MG TABLET PO SCH (21:07)
[2022-02-27 05:21] LABS: Basophils # 0.1 10*3/uL (0.0-0.2); Basophils % 0.6 % (0.0-0.8); Eosinophils # 0.3 10*3/uL (0.0-0.87); Eosinophils % 2.6 % (0.00-10.9); Hemoglobin 12.3 GM/DL (14.0-18.0); Immature Granulocytes % 4.6 %; Immature Granulocytes Absolute 0.44 #; Lymphocytes # 2.1 10*3/uL (1.4-4.0); Lymphocytes % 22.3 % (21.2-54.2); Mean Corpuscular HGB Conc 33.2 GM/DL (32-36); Mean Corpuscular Volume 91.8 FL (87-102); Mean Platelet Volume 10.4 FL (9.6-12.0); Monocytes # 1.2 10*3/uL (0.11-0.8); Monocytes % 12.2 % (1.7-12.7); Neutrophils % 57.7 % (38.7-73.9); Platelet Count 310 T/CUMM (130-400); Red Blood Count 4.03 MC/CUMM (3.8-5.5); Red Cell Distribution Width 14.1 % (9.3-17.3); White Blood Count 9.5 T/CUMM (4-12)
[2022-02-27 05:45] LABS: Albumin 2.9 G/DL (3.4-5.0); Bilirubin,Total 0.9 MG/DL (0.20-1.00); Calcium 8.1 MG/DL (8.5-10.1); Osmolality,Calculated 293.8 MOS/KG (273-304); Potassium 3.2 MMOL/L (3.5-5.1); Total Protein 6.2 G/DL (6.4-8.2)
[2022-02-27] MEDS: LEVOTHYROXINE 125 MCG TABLET PO SCH (06:21)
[2022-02-27] MEDS: LEVALBUTEROL 1.25 MG/3 ML NEB RESP TX SCH ×3 (06:49→18:53)
[2022-02-27] MEDS ORDERED: POTASSIUM CHLORIDE 20 MEQ TABLET PO ONE (08:14)
[2022-02-27] MEDS: FUROSEMIDE 40 MG/4 ML VIAL IV SCH (08:43)
[2022-02-27] MEDS: POLYETHYLENE GLYCOL POWDER 17 GM PACK PO SCH (08:43)
[2022-02-27] MEDS: AZITHROMYCIN 250 MG TABLET PO SCH (08:44)
[2022-02-27] MEDS: guaiFENesin/DM ER 600-30 MG TABLET PO SCH ×2 (08:44→20:50)
[2022-02-27] MEDS: AMIODARONE 200 MG TABLET PO SCH (08:44)
[2022-02-27] MEDS: DAPAGLIFLOZIN 10 MG TABLET PO SCH (08:44)
[2022-02-27] MEDS: APIXABAN 5 MG TABLET PO SCH ×2 (08:44→20:49)
[2022-02-27] MEDS: PANTOPRAZOLE 40 MG TABLET PO SCH (08:44)
[2022-02-27] MEDS: BUDESONIDE/FORMOTEROL 160-4.5 INHALER 6 GM INH SCH ×2 (08:46→20:50)
[2022-02-27] MEDS: cefTRIAXone 1,000 MG in SODIUM CHLORIDE 0.9% 100 ML IV SCH (11:10)
[2022-02-27] MEDS: ASPIRIN EC 81 MG TABLET PO SCH (20:49)
[2022-02-27] MEDS: traZODone 50 MG TABLET PO SCH (20:49)
[2022-02-27] MEDS: ATORVASTATIN 40 MG TABLET PO SCH (20:50)
[2022-02-28] MEDS: LEVALBUTEROL 1.25 MG/3 ML NEB RESP TX SCH ×2 (01:28→07:40)
[2022-02-28 05:33] LABS: Basophils # 0.1 10*3/uL (0.0-0.2); Basophils % 0.6 % (0.0-0.8); Eosinophils # 0.4 10*3/uL (0.0-0.87); Eosinophils % 3.7 % (0.00-10.9); Hematocrit 36.3 VOL% (42.0-52.0); Hemoglobin 11.7 GM/DL (14.0-18.0); Immature Granulocytes % 4.2 %; Immature Granulocytes Absolute 0.43 #; Lymphocytes # 2.1 10*3/uL (1.4-4.0); Lymphocytes % 20.5 % (21.2-54.2); Mean Corpuscular HGB Conc 32.2 GM/DL (32-36); Mean Platelet Volume 10.4 FL (9.6-12.0); Monocytes # 1.2 10*3/uL (0.11-0.8); Monocytes % 11.3 % (1.7-12.7); Neutrophils % 59.7 % (38.7-73.9); Platelet Count 281 T/CUMM (130-400); Red Blood Count 3.86 MC/CUMM (3.8-5.5); Red Cell Distribution Width 14.4 % (9.3-17.3); White Blood Count 10.2 T/CUMM (4-12)
[2022-02-28] MEDS: LEVOTHYROXINE 125 MCG TABLET PO SCH (05:37)
[2022-02-28 05:59] LABS: Calcium 8.5 MG/DL (8.5-10.1); Osmolality,Calculated 293.8 MOS/KG (273-304); Potassium 3.7 MMOL/L (3.5-5.1)
[2022-02-28 06:01] LABS: Albumin 3.2 G/DL (3.4-5.0); Bilirubin,Total 0.7 MG/DL (0.20-1.00); Calcium 8.5 MG/DL (8.5-10.1); Osmolality,Calculated 292.8 MOS/KG (273-304); Potassium 3.9 MMOL/L (3.5-5.1); Total Protein 5.7 G/DL (6.4-8.2)
[2022-02-28] MEDS: AMIODARONE 200 MG TABLET PO SCH (08:32)
[2022-02-28] MEDS: guaiFENesin/DM ER 600-30 MG TABLET PO SCH (08:32)
[2022-02-28] MEDS: PANTOPRAZOLE 40 MG TABLET PO SCH (08:32)
[2022-02-28] MEDS: APIXABAN 5 MG TABLET PO SCH (08:32)
[2022-02-28] MEDS: POLYETHYLENE GLYCOL POWDER 17 GM PACK PO SCH (08:32)
[2022-02-28] MEDS: AZITHROMYCIN 250 MG TABLET PO SCH (08:32)
[2022-02-28] MEDS: DAPAGLIFLOZIN 10 MG TABLET PO SCH (08:32)
[2022-02-28] MEDS: BUDESONIDE/FORMOTEROL 160-4.5 INHALER 6 GM INH SCH (08:33)
[2022-02-28] MEDS: FUROSEMIDE 40 MG/4 ML VIAL IV SCH (08:33)
[2022-02-28 09:02] VITALS: BP 164/92
[2022-02-28] MEDS: cefTRIAXone 1,000 MG in SODIUM CHLORIDE 0.9% 100 ML IV SCH (10:54)
== END 2022-02-28 12:25 | disposition home or self-care (01) | DRG 193 ==
LOC: EDUNIT# → EDBD → N.2W 13:16 → N.ED 13:16 → SUATTDRO 18:08 → N.2W 20:28 → SUATTDRO 02-26 13:14
PROVIDERS: ADMIT Family Medicine; ATTEND Family Medicine